=== PATIENT | male | born 1950 | race Caucasian/White ===

== ENCOUNTER 2017-04-20 16:54 | Emergency (ER) | payer OTHER ==
[2017-04-20] MEDS ORDERED: KETOROLAC TROMETHAMINE INJ 30 MG/ML VIAL ONE (17:25)
[2017-04-20] MEDS ORDERED: KETOROLAC TROMETHAMINE INJ 60 MG/2 ML VIAL IM ONE (17:30)
== END 2017-04-20 18:41 | disposition home or self-care (01) ==
LOC: ER 17:07
DX: M25.512 Pain in left shoulder (principal); I10 Essential (primary) hypertension
CPT/HCPCS: 73030; 96372; 99284; J1885

== ENCOUNTER 2017-05-18 02:51 | Emergency (ER) | payer OTHER ==
[~2017-05-18] VITALS: Ht 165.1 cm; Wt 72.1 kg
[2017-05-18 02:55] VITALS: BP 152/97
--- NOTE | 2017-05-18 03:16 | NUR ---
LIABILITY CLAIMS EXAMINER AT BEDSIDE
== END 2017-05-18 03:33 | disposition home or self-care (01) ==
LOC: ER 02:58
DX: R05 Cough (principal); I10 Essential (primary) hypertension
CPT/HCPCS: 71045-TC; A4606; Z7610